=== PATIENT | female | born 1960 | race American Indian/Alaskan Native ===

== ENCOUNTER 2021-01-29 11:07 | Emergency (ER) | payer SELFPAY ==
[2021-01-29 11:58] LABS: Hematocrit 48.4 % (30.3-42.9); Hemoglobin 16.8 gm/dl (10.1-14.3); Mean Corpuscular HGB Conc 35 % (30-34); Mean Corpuscular Volume 92 fl (79-97); Platelet Count 300 K/mm3 (140-440); Red Blood Count 5.25 M/mm3 (3.65-5.03); Red Cell Distribution Width 14.5 % (13.2-15.2)
--- NOTE | 2021-01-29 12:16 | XRay Report ---
XR chest routine 2V INDICATION / CLINICAL INFORMATION: shortness of breath COMPARISON: None FINDINGS: SUPPORT DEVICES: None. HEART / MEDIASTINUM: No significant abnormality. LUNGS / PLEURA: Lungs are clear. Costophrenic sulci are sharp. No pneumothorax. ADDITIONAL FINDINGS: No significant additional findings. IMPRESSION: 1. No acute findings. Signer Name: Reinaldo Hope MD Signed: 01/29/2021 12:11 PM Workstation Name: [id number]
[2021-01-29 12:29] LABS: Alanine Aminotransferase 7 units/L (7-56); Albumin 3.7 g/dL (3.9-5); Blood Urea Nitrogen 9 mg/dL (7-17); Calcium 9.4 mg/dL (8.4-10.2); Hemolysis Index 9
[2021-01-29 12:33] LABS: BUN/Creatinine Ratio 13
[2021-01-29 12:45] LABS: Total Cells Counted 100
[2021-01-29 12:47] LABS: Platelet Estimate Consistent w Auto
[2021-01-29] MEDS ORDERED: ALBUTEROL 2.5 MG/3 ML NEBU IH ONE (12:54)
[2021-01-29] MEDS ORDERED: IPRATROPIUM 0.02% NEBU 2.5 ML IH ONE (12:54)
--- NOTE | 2021-01-29 13:00 | Emergency Department Report ---
HPI - HPI HPI: Room 44 The patient is a 60-year-old female present with chief complaint of shortness of breath. The patient states she has had dyspnea on exertion for approximately 1 year. Patient states over the past 2 weeks this is worsened. Patient admits to a cough productive of clear sputum. Patient denies history of fever or rhinorrhea. Patient denies shortness of breath at rest. Patient states she re ceived her second Covid vaccination last month. Patient admits to smoking cigarettes daily for approximately 20 years. Patient also admits to intermittent crack use <LOI MEJIA - Last Filed: 01/29/21 15:36> <RAYMUNDO WAHL - Last Filed: 01/29/21 17:02> - General Chief Complaint: Dyspnea/Respdistress Time Seen by Provider: 01/29/21 12:31 ED Past Medical Hx - Past Medical History Previous Medical History?: No - Surgical History Past Surgical History?: No - Family History Family history: no significant - Social History Smoking Status: Current Every Day Smoker (2 cigarettes daily) Substance Use Type: None (Occasional), Cocaine (Crack last used 2 days ago) <LOI MEJIA - Last Filed: 01/29/21 15:36> <RAYMUNDO WAHL - Last Filed: 01/29/21 17:02> - Medications Home Medications: Home Medications Medication Instructions Recorded Confirmed Last Taken Type Albuterol Mdi (or & Nicu Only) 2 puff IH QID PRN #8.5 gram 01/29/21 Unknown Rx [ProAir HFA Inhaler] Prednisone [predniSONE 10 mg 10 mg PO .TAPER #1 tab.ds.pk 01/29/21 Unknown Rx (6-Day Pack, 21 Tabs)] ED Review of Systems ROS: Stated complaint: HARD TIME BREATHING Other details as noted in HPI Constitutional: denies: fever Eyes: denies: eye pain ENT: denies: throat pain Respiratory: cough, SOB with exertion Cardiovascular: denies: chest pain Endocrine: no symptoms reported Gastrointestinal: denies: abdominal pain Genitourinary: denies: dysuria Musculoskeletal: denies: back pain Neurological: denies: headache <LOI MEJIA - Last Filed: 01/29/21 15:36> ROS: Stated complaint: HARD TIME BREATHING Other details as noted in HPI <RAYMUNDO WAHL - Last Filed: 01/29/21 17:02> Physical Exam - Physical Exam Vital Signs: Vital Signs 01/29/21 01/29/21 11:14 12:44 Temperature 98.9 F Pulse Rate 94 H 99 H Respiratory 24 18 Rate Blood Pressure 123/89 O2 Sat by Pulse 92 94 Oximetry Physical Exam: GENERAL: The patient is well-developed well-nourished female sitting in chair not appearing to be in acute distress. [] HEENT: Normocephalic. Atraumatic. Extraocular motions are intact. Patient has moist mucous membranes. NECK: Supple. Trachea midline CHEST/LUNGS: Clear to auscultation. There is no respiratory distress noted. HEART/CARDIOVASCULAR: Regular. There is no tachycardia. There is no gallop rub or murmur. ABDOMEN: Abdomen is soft, nontender. Patient has normal bowel sounds. There is no abdominal distention. SKIN: There is no rash. There is no edema. There is no diaphoresis. NEURO: The patient is awake, alert, and oriented. The patient is cooperative. The patient has no focal neurologic deficits. The patient has normal speech MUSCULOSKELETAL: There is no evidence of acute injury. <LOI MEJIA K - Last Filed: 01/29/21 15:36> - Physical Exam Vital Signs: Vital Signs 01/29/21 01/29/21 01/29/21 11:14 12:44 13:25 Temperature 98.9 F Pulse Rate 94 H 99 H Pulse Rate [ 85 Bilateral] Respiratory 24 18 Rate Respiratory 15 Rate [Bilateral ] Blood Pressure 123/89 O2 Sat by Pulse 92 94 Oximetry <RAYMUNDO WAHL - Last Filed: 01/29/21 17:02> ED Course Vital Signs 01/29/21 01/29/21 11:14 12:44 Temperature 98.9 F Pulse Rate 94 H 99 H Respiratory 24 18 Rate Blood Pressure 123/89 O2 Sat by Pulse 92 94 Oximetry <LOI MEJIA - Last Filed: 01/29/21 15:36> Vital Signs 01/29/21 01/29/21 01/29/21 11:14 12:44 13:25 Temperature 98.9 F Pulse Rate 94 H 99 H Pulse Rate [ 85 Bilateral] Respiratory 24 18 Rate Respiratory 15 Rate [Bilateral ] Blood Pressure 123/89 O2 Sat by Pulse 92 94 Oximetry - Reevaluation(s) Reevaluation #1: 01/29/21 16:57 On reevaluation at 4:55 PM, the patient is resting comfortably in the bed. She is in no acute distress. She reports that her symptoms are greatly improved. CTA of the chest shows no evidence of pulmonary embolism but there is an incidental finding of a right thyroid mass. The patient's vital signs are stable. Further work-up in the ER is not warranted at this time. I informed the patient of this incidental finding and the importance of follow-up with primary care doctor. The patient has been prescribed an albuterol inhaler and steroid course. The patient expressed understanding and agreement with the plan of care <RAYMUNDO WAHL - Last Filed: 01/29/21 17:02> ED Medical Decision Making - Lab Data Result diagrams: 01/29/21 11:34 01/29/21 11:34 Laboratory Tests 01/29/21 01/29/21 01/29/21 11:34 11:34 12:58 WBC 5.9 RBC 5.25 H Hgb 16.8 H Hct 48.4 H MCV 92 MCH 32 MCHC 35 H RDW 14.5 Plt Count 300 Add Manual Diff Complete Total Counted 100 Seg Neuts % (Manual) 58.0 Lymphocytes % (Manual) 35.0 Monocytes % (Manual) 1.0 Eosinophils % (Manual) 6.0 H Nucleated RBC % Not Reportable Seg Neutrophils # Man 3.4 Band Neutrophils # 0.0 Lymphocytes # (Manual) 2.1 Abs React Lymphs (Man) 0.0 Monocytes # (Manual) 0.1 Eosinophils # (Manual) 0.4 Basophils # (Manual) 0.0 Metamyelocytes # 0.0 Myelocytes # 0.0 Promyelocytes # 0.0 Blast Cells # 0.0 WBC Morphology Not Reportable Hypersegmented Neuts Not Reportable Hyposegmented Neuts Not Reportable Hypogranular Neuts Not Reportable Smudge Cells Not Reportable Toxic Granulation Not Reportable Toxic Vacuolation Not Reportable Dohle Bodies Not Reportable Pelger-Huet Anomaly Not Reportable Duncan Rods Not Reportable Platelet Estimate Consistent w auto Clumped Platelets Not Reportable Plt Clumps, EDTA Not Reportable Large Platelets Not Reportable Giant Platelets Not Reportable Platelet Satelliting Not Reportable Plt Morphology Comment Not Reportable RBC Morphology Not Reportable Dimorphic RBCs Not Reportable Polychromasia Not Reportable Hypochromasia Not Reportable Poikilocytosis Not Reportable Anisocytosis Not Reportable Microcytosis Not Reportable Macrocytosis Not Reportable Spherocytes Not Reportable Pappenheimer Bodies Not Reportable Sickle Cells Not Reportable Target Cells Not Reportable Tear Drop Cells Not Reportable Ovalocytes Not Reportable Helmet Cells Not Reportable [place] Bodies Not Reportable Warren Rings Not Reportable [place]alba Cells Not Reportable Bite Cells Not Reportable Crenated Cell Not Reportable Elliptocytes Not Reportable Acanthocytes (Spur) Not Reportable Rouleaux Not Reportable Hemoglobin C Crystals Not Reportable Schistocytes Not Reportable Malaria parasites Not Reportable Moi Bodies Not Reportable Hem Pathologist Commnt No D-Dimer 624.26 H Sodium 139 Potassium 3.4 L Chloride 101.4 Carbon Dioxide 25 Anion Gap 16 BUN 9 Creatinine 0.7 Estimated GFR > 60 BUN/Creatinine Ratio 13 Glucose 141 H Calcium 9.4 Total Bilirubin 1.00 AST 14 ALT 7 Alkaline Phosphatase 71 Troponin T < 0.010 NT-Pro-B Natriuret Pep 65.37 Total Protein 7.3 Albumin 3.7 L Albumin/Globulin Ratio 1.0 - EKG Data -: EKG Interpreted by Me EKG shows normal: sinus rhythm Rate: normal - EKG Data When compared to previous EKG there are: previous EKG unavailable Interpretation: other (PVCs) - Radiology Data Radiology results: report reviewed (Chest x-ray), image reviewed (Chest x-ray) interpreted by me: Chest x-ray-no focal infiltrates, no pneumothorax [facility] [address] [place] [address] XRay Report Signed Patient: JENNIFER BACK MR#: [id number] : 1960 Acct:[id number] Age/Sex: 60 / F ADM Date: 01/29/21 Loc: ED Attending Dr: Ordering Physician: JADON EVANS Date of Service: 01/29/21 Procedure(s): XR chest routine 2V Accession Number(s): [id number] cc: JADON EVANS Fluoro Time In Minutes: XR chest routine 2V INDICATION / CLINICAL INFORMATION: shortness of breath COMPARISON: None FINDINGS: SUPPORT DEVICES: None. HEART / MEDIASTINUM: No significant abnormality. LUNGS / PLEURA: Lungs are clear. Costophrenic sulci are sharp. No pneumothorax. ADDITIONAL FINDINGS: No significant additional findings. IMPRESSION: 1. No acute findings. Signer Name: Reinaldo Hope MD Signed: 01/29/2021 12:11 PM Workstation Name: [id number] Transcribed By: Dictated By: Reinaldo Hope MD Electronically Authenticated By: Reinaldo Hope MD Signed Date/Time: 01/29/211210 DD/ 10 TD/TT: Print Cancel - Differential Diagnosis COPD, PE, pneumonia, bronchitis, CHF <LOI MEJIA K - Last Filed: 01/29/21 15:36> - Lab Data Result diagrams: 01/29/21 11:34 01/29/21 11:34 - Radiology Data CTA CHEST WITH IV CONTRAST INDICATION: Shortness of breath CONTRAST: 100 cc 350 IV COMPARISON: Chest x-ray today Three-plane MIP reconstructions were produced. All CT scans at this location are performed using CT dose reduction for ALARA by means of automated exposure control. NOTE: Resolution is decreased and artifact is introduced by the patient's size. FINDINGS: Visualized portions of the upper abdomen show no significant abnormalities. No significant axillary or chest wall abnormalities are seen. The right lobe of the thyroid has an abnormal appearance with a heterogenous apparent mass measuring 2.5 cm with slight calcification seen. No mediastinal or hilar masses are noted. No pleural effusions are seen. No obvious endobronchial lesions are noted. No pneumothorax or pneumomediastinum are seen. Lung roberts are clear of infiltrates, nodules, or masses. Mild scarring/atelectasis is seen in the lingula. Aorta shows no aneurysmal dilatation or evidence of dissection. Only mild sclerotic changes are seen. Major visualized vessels show good filling. Acceptable opacification of the pulmonary arterial system was achieved. Though there is mild artifact due to the patient's size and mild motion, I do not see convincing evidence of pulmonary thromboembolism IMPRESSION: 1. No acute abnormalities are seen 2. Right thyroid mass. This is not a known abnormality, recommend clinical and sonographic follow-up. INCIDENTAL THYROID NODULE RECOMMENDATIONS Nonpalpable nodules detected on US or other anatomic imaging studies are termed incidentally discovered nodules or incidentalomas. Nonpalpable nodules have the same risk of malignancy as palpable nodules with the same size. Generally, only nodules >1 cm should be evaluated, since they have a greater potential to be clinically significant cancers. (RAJEEV, 2009). Follow up for incidental thyroid nodules <1 cm is not recommended. In patients <35 years with an incidental thyroid nodule detected on CT, MRI, or extrathyroidal ultrasound, dedicated thyroid ultrasound is recommended if the nodule is 1 cm, has no suspicious imaging features, and if the patient has normal life expectancy. In patients 35 years with an incidental thyroid nodule detected on CT, MRI, or extrathyroidal ultrasound, dedicated thyroid ultrasound is recommended if the nodule is 1.5 cm, has no suspicious imaging features, and if the patient has normal life expectancy. Signer Name: Gabo Preciado MD Signed: 01/29/2021 3:38 PM Workstation Name: [id number] <RAYMUNDO WAHL - Last Filed: 01/29/21 17:02> Critical care attestation.: If time is entered above; I have spent that time in minutes in the direct care of this critically ill patient, excluding procedure time. <LOI MEJIA - Last Filed: 01/29/21 15:36> Critical care attestation.: If time is entered above; I have spent that time in minutes in the direct care of this critically ill patient, excluding procedure time. <RAYMUNDO WAHL - Filed: 01/29/21 17:02> ED Disposition Is pt being admited?: No Does the pt Need Aspirin: No <LOI MEJIA - Last Filed: 01/29/21 15:36> <RAYMUNDO WAHL Filed: 01/29/21 17:02> Clinical Impression: Shortness of breath, Reactive airway disease, Thyroid mass of unclear etiology Disposition: DC-01 TO HOME OR SELFCARE Condition: Stable Instructions: Shortness of Breath, Adult, Yjdm-ic-Hnxr, Chronic Obstructive Pul monary Disease Additional Instructions: The Cat scan of your chest revealed an incidental finding of a mass in the right side of your thyroid gland. This needs to be followed up by primary care doctor. Please return to the emergency department should you develop worsening symptoms, inability to tolerate food or liquids, high fever or any other concerns Prescriptions: Prednisone [predniSONE 10 mg (6-Day Pack, 21 Tabs)] 10 mg PO .TAPER #1 tab.ds.pk Albuterol Mdi (or & Nicu Only) [ProAir HFA Inhaler] 2 puff IH QID PRN #8.5 gram PRN Reason: Shortness Of Breath Referrals: [facility] [Provider Group] - 3-5 Days
--- NOTE | 2021-01-29 16:43 | Cat Scan Report ---
CTA CHEST WITH IV CONTRAST INDICATION: Shortness of breath CONTRAST: 100 cc 350 IV COMPARISON: Chest x-ray today Three-plane MIP reconstructions were produced. All CT scans at this location are performed using CT d ose reduction for ALARA by means of automated exposure control. NOTE: Resolution is decreased and artifact is introduced by the patient's size. FINDINGS: Visualized portions of the upper abdomen show no significant abnormalities. No significant axillary or chest wall abnormalities are seen. The right lobe of the thyroid has an abnormal appearan ce with a heterogenous apparent mass measuring 2.5 cm with slight calcification seen. No mediastinal or hilar masses are noted. No pleural effusions are seen. No obvious endobronchial lesions are noted. No pneumothorax or pneumomediastinum are seen. Lung roberts are clear of infiltrates, nodules, or mas ses. Mild scarring/atelectasis is seen in the lingula. Aorta shows no aneurysmal dilatation or evidence of dissection. Only mild sclerotic changes are seen. Major visualized vessels show good filling. Acceptable opacification of the pulmonary arterial system was achieved. Though there is mild artifact due to the patient's size and mild motion, I do not see convincing evidence of pulmonary thromboembo lism IMPRESSION: 1. No acute abnormalities are seen 2. Right thyroid mass. This is not a known abnormality, recommend clinical and sonographic follow-up. INCIDENTAL THYROID NODULE RECOMMENDATIONS Nonpalpable nodules detected on US or other anatomic imaging studies are termed incidentally discover ed nodules or incidentalomas. Nonpalpable nodules have the same risk of malignancy as palpable nodule s with the same size. Generally, only nodules >1 cm should be evaluated, since they have a greater po tential to be clinically significant cancers. (RAJEEV, 2009). Follow up for incidental thyroid nodules <1 cm is not recommended. In patients <35 years with an incidental thyroid nodule detected on CT, MRI, or extrathyroidal ultras ound, dedicated thyroid ultrasound is recommended if the nodule is 1 cm, has no suspicious imaging fe atures, and if the patient has normal life expectancy. In patients 35 years with an incidental thyroid nodule detected on CT, MRI, or extrathyroidal ultraso und, dedicated thyroid ultrasound is recommended if the nodule is 1.5 cm, has no suspicious imaging f eatures, and if the patient has normal life expectancy. Signer Name: Gabo Preciado MD Signed: 01/29/2021 4:38 PM Workstation Name: [id number]
[2021-01-29 18:11] VITALS: BP 151/73
--- NOTE | 2021-01-30 09:55 | Electrocardiograph Report ---
[facility] Test Date: 2021-01-29 Test Time: 11:18:21 Pat Name: JENNIFER BACK Department: Room: Gender: F Development Mgr: STEWART : 1960 Requested By: ED DOC Order Number: [id number] Reading MD: Jaskaran Brar Measurements Intervals [place] Rate: 95 P: 83 ME: 136 QRS: 7 QRSD: 74 T: 73 QT: 358 QTc: 452 Interpretive Statements Sinus rhythm Multiple ventricular premature complexes Biatrial enlargement non specific st-t No previous ECG available for comparison Electronically Signed On 01-30-2021 9:55:14 EDT by Jaskaran Brar
== END 2021-01-29 18:11 | disposition home or self-care (01) ==
LOC: ED 11:07
DX: J45.909 Unspecified asthma, uncomplicated (principal); E07.9 Disorder of thyroid, unspecified; R06.02 Shortness of breath; F17.200 Nicotine dependence, unspecified, uncomplicated; Z79.899 Other long term (current) drug therapy
CPT/HCPCS: 36415; 71046; 71275; 80053; 83880; 84484; 85007; 85025; 85379; 93005; 94640; 99284; Q9967; 94644

== ENCOUNTER 2021-06-20 13:08 | Inpatient (IN) | payer SELFPAY ==
[2021-06-20] MEDS ORDERED: IPRATROPIUM 0.02% NEBU 2.5 ML IH ONE ×2 (13:15→13:26)
[2021-06-20] MEDS ORDERED: ALBUTEROL 2.5 MG/3 ML NEBU IH ONE ×2 (13:15→13:26)
[2021-06-20] MEDS ORDERED: MAGNESIUM SULFATE 2 GM/50 ML BAG IV ONE (13:26)
[2021-06-20] MEDS ORDERED: SODIUM CHLORIDE 0.9% 500 ML 500 ML IV ONE (13:26)
[2021-06-20] MEDS ORDERED: methylPREDNISolone Sod Succinate 125 MG/2 ML INJ IV ONE (13:26)
[2021-06-20] MEDS ORDERED: ACETAMINOPHEN 325 MG TAB PO ONE (13:27)
[2021-06-20] MEDS ORDERED: PANTOPRAZOLE 40 MG INJ IV ONE (13:27)
--- NOTE | 2021-06-20 13:28 | Emergency Department Report ---
ED General Adult HPI - General Chief complaint: Dyspnea/Respdistress Stated complaint: SOB PUI?: No Time Seen by Provider: 06/20/21 13:14 Source: patient, RN notes reviewed, old records reviewed Mode of arrival: Ambulatory Limitations: Physical Limitation - History of Present Illness Initial comments: The patient is a 61-year-old female. She is not known to myself previously. Patient has a history of tobacco use, crack abuse, and marijuana abuse. The patient was seen in this hospital in January 2021, of this year, and had a work-up for new onset reactive airways disease. She had laboratory studies, x-ray of the chest, and CT scan of the chest as well as EKG. Laboratory studies were essentially unremarkable, and CT scan of the chest showed no acute pulmonary findings. Patient states she was prescribed some inhalers, some of which she has taken, but subsequently ran out of, and also reports difficulty affording pres criptions. Patient presents to the ER today with complaint of chest tightness, cough, wheezing, clear mucus production and shortness of breath. She is COVID-19 vaccinated. She denies fever, loss of taste and smell, abdominal pain, vomiting, diaphoresis, leg pain, leg swelling, travel, surgery, immobilization, DVT and PE risk factors. She is feeling improved on a nonrebreather with albuterol and Atrovent as well as supplemental oxygen. -: Gradual, days(s) Location: chest Radiation: non-radiation Consistency: constant Improves with: rest Worsens with: movement (Movement and cough) - Related Data Previous Rx's Medication Instructions Recorded Last Taken Type Albuterol Mdi (or & Nicu Only) 2 puff IH QID PRN #8.5 gram 01/29/21 Unknown Rx [ProAir HFA Inhaler] Prednisone [predniSONE 10 mg 10 mg PO .TAPER #1 tab.ds.pk 01/29/21 Unknown Rx (6-Day Pack, 21 Tabs)] Albuterol Sulfate [Albuterol 0.63% 0.63 mg IH Q4HR PRN #2 ml 06/20/21 Unknown Rx NEBS] Albuterol Sulfate [Proair 90 mcg IH Q4HR PRN #2 aer.pow.ba 06/20/21 Unknown Rx Respiclick] DOXYCYCLINE Hyclate [Vibramycin] 100 mg PO Q12HR #10 capsule 06/20/21 Unknown Rx Ipratropium (Nf) [Atrovent] 2 puff IH Q6HR PRN #1 inha 06/20/21 Unknown Rx Ipratropium [Atrovent NEB] 0.5 mg IH Q4HR #2 ml 06/20/21 Unknown Rx predniSONE [Deltasone] 40 mg PO QDAY #8 tab 06/20/21 Unknown Rx Allergies Allergy/AdvReac Type Severity Reaction Status Date / Time No Known Allergies Allergy Verified 06/20/21 13:11 ED Review of Systems ROS: Stated complaint: SOB Other details as noted in HPI Constitutional: malaise. denies: fever Eyes: denies: eye discharge ENT: congestion Respiratory: cough, shortness of breath, SOB with exertion, SOB at rest, wheezing Cardiovascular: chest pain Gastrointestinal: denies: abdominal pain, nausea, vomiting Musculoskeletal: myalgia Neurological: weakness Psychiatric: anxiety Hematological/Lymphatic: denies: easy bleeding ED Past Medical Hx - Social History Smoking Status: Current Every Day Smoker Substance Use Type: Cocaine, Marijuana - Medications Home Medications: Home Medications Medication Instructions Recorded Confirmed Last Taken Type Albuterol Mdi (or & Nicu Only) 2 puff IH QID PRN #8.5 gram 01/29/21 Unknown Rx [ProAir HFA Inhaler] Prednisone [predniSONE 10 mg 10 mg PO .TAPER #1 tab.ds.pk 01/29/21 Unknown Rx (6-Day Pack, 21 Tabs)] Albuterol Sulfate [Albuterol 0.63% 0.63 mg IH Q4HR PRN #2 ml 06/20/21 Unknown Rx NEBS] Albuterol Sulfate [Proair 90 mcg IH Q4HR PRN #2 aer.pow.ba 06/20/21 Unknown Rx Respiclick] DOXYCYCLINE Hyclate [Vibramycin] 100 mg PO Q12HR #10 capsule 06/20/21 Unknown Rx Ipratropium (Nf) [Atrovent] 2 puff IH Q6HR PRN #1 inha 06/20/21 Unknown Rx Ipratropium [Atrovent NEB] 0.5 mg IH Q4HR #2 ml 06/20/21 Unknown Rx predniSONE [Deltasone] 40 mg PO QDAY #8 tab 06/20/21 Unknown Rx ED Physical Exam - General Limitations: Physical Limitation General appearance: alert, anxious, in distress - Head Head exam: Present: atraumatic, normocephalic - Eye Eye exam: Present: normal appearance, EOMI. Absent: nystagmus - ENT ENT exam: Present: normal exam, normal orophraynx, mucous membranes moist, normal external ear exam - Neck Neck exam: Present: normal inspection, full ROM. Absent: tenderness, meningismus - Respiratory Respiratory exam: Present: respiratory distress, wheezes, rhonchi, accessory muscle use - Cardiovascular Cardiovascular Exam: Present: normal rhythm, tachycardia, normal heart sounds. Absent: bradycardia, irregular rhythm, systolic murmur, diastolic murmur, rubs, gallop - GI/Abdominal GI/Abdominal exam: Present: soft. Absent: distended, tenderness, guarding, rebound, rigid, pulsatile mass - Extremities Exam Extremities exam: Present: normal inspection, full ROM, other (2+ pulses noted in the bilateral upper and lower extremities. There is no palpable cord. negative Homans sign. Muscular compartments are soft. The pelvis is stable.). Absent: pedal edema, calf tenderness - Back Exam Back exam: Present: normal inspection, full ROM. Absent: tenderness, CVA t enderness (R), CVA tenderness (L), paraspinal tenderness, vertebral tenderness - Neurological Exam Neurological exam: Present: alert, oriented X3, other (No facial droop. Tongue midline. Extraocular movements intact bilaterally. Facial sensation intact to light touch in V1, V2, V3 distribution bilaterally. 5 and a 5 strength in 4 extremities. Sensation intact to light touch in 4 extremities.). Absent: motor sensory deficit - Psychiatric Psychiatric exam: Present: anxious - Skin Skin exam: Present: warm, dry, intact, normal color. Absent: rash ED Course Vital Signs 06/20/21 06/20/21 06/20/21 13:25 13:33 13:41 Temperature 98.1 F Pulse Rate 107 H Pulse Rate [ 100 H Bilateral] Respiratory 32 H Rate Respiratory 16 Rate [Bilateral ] Blood Pressure 157/94 Blood Pressure [Left] O2 Sat by Pulse 94 Oximetry 06/20/21 06/20/21 13:44 15:30 Temperature Pulse Rate 99 H Pulse Rate [ Bilateral] Respiratory 24 22 Rate Respiratory Rate [Bilateral ] Blood Pressure Blood Pressure 126/74 [Left] O2 Sat by Pulse 97 90 Oximetry - Reevaluation(s) Reevaluation #1: 06/20/21 13:45 Differential diagnosis, including but not limited to: Bronchitis, pneumonia, pneumonitis, costochondritis, emphysema, COPD Assessment and plan: 61-year-old female with recurrent episode of reactive airwa ys disease, likely bronchitis versus emphysema versus COPD. Patient counseled to discontinue tobacco, marijuana, and crack consumption. She presents as awake, alert, oriented, sober and of sound mind at this time. Denies travel, surgery, immobilization, DVT/PE risk factors. Tachycardia and tachypnea likely secondary to physiologic compensation for underlying reactive airways disease. Her EKG is unchanged from prior. She had a CT scan of the chest for similar symptoms January of this year. We will treat her with albuterol, Atrovent, steroids, magnesium, pain control, we will obtain laboratory studies and x-ray the chest. Reassess after initial data points. 06/20/21 15:10 Polycythemia reviewed and appreciated. Still wheezing. Has not completed albuterol Atrovent therapy. Care will be transferred to the oncoming ER physician, to follow-up on repeat physical evaluation after completion of nebulizer therapy. If vital signs and exam normalized, would consider it reasonable to discharge this patient with outpatient follow-up, and tobacco cessation instructions. 06/20/21 15:36 Patient saturating 87% on room air. Arterial blood gas ordered. Still wheezing and symptomatic. IV antibiotics ordered. Supplemental oxygen ordered. Patient will require admission and hospitalization for hypoxic respiratory failure, likely secondary to emphysema/bronchitis. I discussed this with the patient. She is agreeable to this plan of care. 06/20/21 15:57 Dr Flo Christie to admit to [facility] ED Medical Decision Making - Lab Data Result diagrams: 06/20/21 13:40 06/20/21 13:39 Vital Signs 06/20/21 06/20/21 13:25 13:33 Pulse Rate 107 H Pulse Rate [ 100 H Bilateral] Respiratory 32 H Rate Respiratory 16 Rate [Bilateral ] Blood Pressure 157/94 O2 Sat by Pulse 94 Oximetry Lab Results 06/20/21 06/20/21 06/20/21 Range/Units 13:39 13:39 13:40 WBC 6.8 (4.5-11.0) K/mm3 RBC 6.09 H (3.65-5.03) M/mm3 Hgb 18.0 H (10.1-14.3) gm/dl Hct 55.7 H* (30.3-42.9) % MCV 91 (79-97) fl MCH 30 (28-32) pg MCHC 32 (30-34) % RDW 14.4 (13.2-15.2) % Plt Count 325 (140-440) K/mm3 Lymph % (Auto) 32.9 (13.4-35.0) % [place] % (Auto) 7.4 H (0.0-7.3) % Eos % (Auto) 2.6 (0.0-4.3) % Baso % (Auto) 1.1 (0.0-1.8) % Lymph # (Auto) 2.2 (1.2-5.4) K/mm3 [place] # (Auto) 0.5 (0.0-0.8) K/mm3 Eos # (Auto) 0.2 (0.0-0.4) K/mm3 Baso # (Auto) 0.1 (0.0-0.1) K/mm3 Seg Neutrophils % 56.0 (40.0-70.0) % Seg Neutrophils # 3.8 (1.8-7.7) K/mm3 PT 13.2 (12.2-14.9) Sec. INR 0.90 (0.87-1.13) Sodium 139 (137-145) mmol/L Potassium 4.1 (3.6-5.0) mmol/L Chloride 98.1 (98-107) mmol/L Carbon Dioxide 25 (22-30) mmol/L Anion Gap 20 mmol/L BUN 7 (7-17) mg/dL Creatinine 0.5 L (0.6-1.2) mg/dL Estimated GFR > 60 ml/min BUN/Creatinine Ratio 14 % Glucose 86 (65-100) mg/dL Calcium 9.4 (8.4-10.2) mg/dL Magnesium 2.10 (1.7-2.3) mg/dL Total Bilirubin 1.10 (0.1-1.2) mg/dL AST 13 (5-40) units/L ALT 9 (7-56) units/L Alkaline Phosphatase 85 (35-129) units/L Troponin T < 0.010 (0.00-0.029) ng/mL Total Protein 8.2 (6.3-8.2) g/dL Albumin 4.3 (3.9-5) g/dL Albumin/Globulin Ratio 1.1 % - EKG Data -: EKG Interpreted by Me EKG shows normal: sinus rhythm Rate: normal - EKG Data When compared to previous EKG there are: no significant change 06/20/21 13:41 EKG today is interpreted at 13: 36 It is compared to prior EKG from 01/29/2021 Sinus rhythm, rate 97 bpm. Left axis deviation. Borderline left anterior fascicular block. QTC 479 ms. PVC. Minimal motion artifact. Abnormal EKG. Not a STEMI. Unchanged from prior. - Radiology Data Radiology results: report reviewed, image reviewed CTA CHEST WITH IV CONTRAST INDICATION: Shortness of breath CONTRAST: 100 cc 350 IV COMPARISON: Chest x-ray today Three-plane MIP reconstructions were produced. All CT scans at this location are performed using CT dose reduction for ALARA by means of automated exposure control. NOTE: Resolution is decreased and artifact is introduced by the patient's size. FINDINGS: Visualized portions of the upper abdomen show no significant abnormalities. No significant axillary or chest wall abnormalities are seen. The right lobe of the thyroid has an abnormal appearance with a heterogenous apparent mass measuring 2.5 cm with slight calcification seen. No mediastinal or hilar masses are noted. No pleural effusions are seen. No obvious endobronchial lesions are noted. No pneumothorax or pneumomediastinum are seen. Lung roberts are clear of infiltrates, nodules, or masses. Mild scarring/atelectasis is seen in the lingula. Aorta shows no ane urysmal dilatation or evidence of dissection. Only mild sclerotic changes are seen. Major visualized vessels show good filling. Acceptable opacification of the pulmonary arterial system was achieved. Though there is mild artifact due to the patient's size and mild motion, I do not see convincing evidence of pulmonary thromboembolism IMPRESSION: 1. No acute abnormalities are seen 2. Right thyroid mass. This is not a known abnormality, recommend clinical and sonographic follow-up. INCIDENTAL THYROID NODULE RECOMMENDATIONS Nonpalpable nodules detected on US or other anatomic imaging studies are termed incidentally discovered nodules or incidentalomas. Nonpalpable nodules have the same risk of malignancy as palpable nodules with the same size. Generally, only nodules >1 cm should be evaluated, since they have a greater potential to be clinically significant cancers. (RAJEEV, 2009). Follow up for incidental thyroid nodules <1 cm is not recommended. In patients <35 years with an incidental thyroid nodule detected on CT, MRI, or extrathyroidal ultrasound, dedicated thyroid ultrasound is recommended if the nodule is 1 cm, has no suspicious imaging features, and if the patient has normal life expectancy. In patients 35 years with an incidental thyroid nodule detected on CT, MRI, or extrathyroidal ultrasound, dedicated thyroid ultrasound is recommended if the nodule is 1.5 cm, has no suspicious imaging features, and if the patient has normal life expectancy. Signer Name: Gabo Preciado MD Signed: 01/29/2021 3:38 PM Workstation Name: [id number] XR chest routine 2V INDICATION / CLINICAL INFORMATION: shortness of breath COMPARISON: None FINDINGS: SUPPORT DEVICES: None. HEART / MEDIASTINUM: No significant abnormality. LUNGS / PLEURA: Lungs are clear. Costophrenic sulci are sharp. No pneumothorax. ADDITIONAL FINDINGS: No significant additional findings. IMPRESSION: 1. No acute findings. Signer Name: Reinaldo Hope MD Signed: 01/29/2021 11:11 AM Workstation Name: [id number] XR chest 1V ap INDICATION / CLINICAL INFORMATION: Dyspnea. COMPARISON: CT and radiograph from 01/29/2021. FINDINGS: SUPPORT DEVICES: None. HEART /PULMONARY VASCULATURE: Cardiac silhouette is enlarged without significant pulmonary vasculature congestion. LUNGS / PLEURA: No significant pulmonary or pleural abnormality. No pneumothorax. ADDITIONAL FINDINGS: No significant additional findings. IMPRESSION: 1. No acute findings. Signer Name: Francisco Aldrich MD Signed: 06/20/2021 1:06 PM Workstation Name: [id number] Critical Care Time: Yes Critical care time in (mins) excluding proc time.: 35 Critical care attestation.: If time is entered above; I have spent that time in minutes in the direct care of this critically ill patient, excluding procedure time. ED Disposition Clinical Impression: Reactive airway disease, Tobacco use, Marijuana use, Crack cocaine use, Polycythemia, Acute respiratory failure Disposition: 09 ADMITTED INPATIENT Is pt being admited?: Yes Does the pt Need Aspirin: No Condition: Good Instructions: Chronic Obstructive Pulmonary Disease Additional Instructions: Recommend that patient discontinue consumption of cocaine, crack, marijuana and tobacco products. Patient may take [id number] Tylenol and ibuprofen as needed for physical pain. Please take the albuterol Atrovent medications as directed, and steroids as directed. Please follow-up with an outpatient primary care doctor or criminal justice social worker within the next 5 to 7 days for repeat checkup and evaluation. Patient most likely has emphysema and/or bronchitis and/or COPD. This is likely coming from tobacco consumption. Please return to the emergency room right away with new pain, worsened pain, migration of pain, projectile vomiting, change in mental status, confusion, inability tolerate liquid feeds, new, worsened or different symptoms not present on the initial emergency room evaluation Please have your primary care doctor or criminal justice social worker contact the medical records department to obtain copies of laboratory studies and imaging studies, to follow-up on nonemergent incidental abnormal findings. Prescriptions: Albuterol Sulfate [Albuterol 0.63% NEBS] 0.63 mg IH Q4HR PRN #2 ml PRN Reason: Wheezing Ipratropium (Nf) [Atrovent] 2 puff IH Q6HR PRN #1 inha PRN Reason: Wheezing Ipratropium [Atrovent NEB] 0.5 mg IH Q4HR #2 ml predniSONE [Deltasone] 40 mg PO QDAY #8 tab Albuterol Sulfate [Proair Respiclick] 90 mcg IH Q4HR PRN #2 aer.pow.ba PRN Reason: Wheezing DOXYCYCLINE Hyclate [Vibramycin] 100 mg PO Q12HR #10 capsule Referrals: ALICE HULL MD [Staff Physician] - 3-5 Days TOM CHAVEZ MD [Staff Physician] - 3-5 Days
--- NOTE | 2021-06-20 14:10 | XRay Report ---
XR chest 1V ap INDICATION / CLINICAL INFORMATION: Dyspnea. COMPARISON: CT and radiograph from 01/29/2021. FINDINGS: SUPPORT DEVICES: None. HEART /PULMONARY VASCULATURE: Cardiac silhouette is enlarged without significant pulmonary vasculatur e congestion. LUNGS / PLEURA: No significant pulmonary or pleural abnormality. No pneumothorax. ADDITIONAL FINDINGS: No significant additional findings. IMPRESSION: 1. No acute findings. Signer Name: Francisco Aldrich MD Signed: 06/20/2021 2:06 PM Workstation Name: [id number]
[2021-06-20 14:17] LABS: Basophils # (Auto) 0.1 K/mm3 (0.0-0.1); Basophils % (Auto) 1.1 % (0.0-1.8); Eosinophils # (Auto) 0.2 K/mm3 (0.0-0.4); Eosinophils % (Auto) 2.6 % (0.0-4.3); Lymphocytes # (Auto) 2.2 K/mm3 (1.2-5.4); Lymphocytes % (Auto) 32.9 % (13.4-35.0); Mean Corpuscular HGB Conc 32 % (30-34); Mean Corpuscular Volume 91 fl (79-97); Monocytes # (Auto) 0.5 K/mm3 (0.0-0.8); Monocytes % (Auto) 7.4 % (0.0-7.3); Platelet Count 325 K/mm3 (140-440); Red Blood Count 6.09 M/mm3 (3.65-5.03); Red Cell Distribution Width 14.4 % (13.2-15.2)
[2021-06-20 14:34] LABS: Alanine Aminotransferase 9 units/L (7-56); Albumin 4.3 g/dL (3.9-5); BUN/Creatinine Ratio 14; Blood Urea Nitrogen 7 mg/dL (7-17); Calcium 9.4 mg/dL (8.4-10.2); Hemolysis Index 13
[2021-06-20 14:41] LABS: INR 0.9 (0.87-1.13)
[2021-06-20 14:45] LABS: Hematocrit 55.7 % (30.3-42.9)
[2021-06-20] MEDS ORDERED: FAMOTIDINE 20 MG/2 ML INJ IV ONE (15:12)
[2021-06-20] MEDS ORDERED: diphenhydrAMINE 50 MG/ML VIAL IV ONE (15:12)
[2021-06-20] MEDS ORDERED: AZITHROMYCIN/NS 500 MG/250 ML 500 MG/250 ML BAG IV ONE (15:36)
[2021-06-20] MEDS ORDERED: cefTRIAXone/NS 1 GM/50 ML 1 GM/50 ML BAG IV ONE (15:36)
[2021-06-20 16:06] LABS: ABG Base Excess -2.2 mmol/L (-2.0-3.0); ABG PCO2 36.6 mm Hg; ABG PH 7.398 pH Units (7.350-7.450); ABG PO2 57.9 mm Hg (80.0-90.0)
[2021-06-20 16:21] LABS: ABG Methemoglobin 0.5 % (0.0-1.5); ABG Oxygen Saturation 92.6 % (95.0-99.0)
[2021-06-20] MEDS ORDERED: SODIUM CHLORIDE 0.9% 1000 ML 1,000 ML IV SCH (20:45)
[2021-06-20] MEDS ORDERED: ONDANSETRON 4 MG/2 ML INJ IV PRN (20:45)
[2021-06-20] MEDS ORDERED: ACETAMINOPHEN 325 MG TAB PO PRN (20:45)
[2021-06-20] MEDS ORDERED: METOCLOPRAMIDE 10 MG/2 ML INJ IV PRN (20:47)
[2021-06-20] MEDS ORDERED: HYDROmorphone 1 MG/1 ML INJ IV PRN (20:47)
[2021-06-20] MEDS ORDERED: IPRATROPIUM/ALBUTEROL SULFATE 3 ML AMPUL.NEB IH PRN (20:48)
--- NOTE | 2021-06-20 20:50 | History and Physical Report ---
History of Present Illness Date of examination: 06/20/21 Date of admission: 06/20/21 15:58 Chief complaint: Increasing shortness of breath for 2 days History of present illness: 61-year-old female with history of COPD, nicotine dependence, cocaine use and marijuana use comes in for increasing shortness of breath. Cough productive of mucoid sputum. Previous admission was reviewed which was consistent with COPD exacerbation. No fever or chills. Patient is vaccinated. Complains of chest tightness wheezing and mucus production. No loss of taste or smell. Patient was hypoxic in the emergency room. In the high 80s. - Past medical history COPD - Past surgical history --none -Family history --Htn - Social History --Smoking Status: Current Every Day Smoker --Substance Use Type: Cocaine, Marijuana - Medications Home Medications: Home Medications Medication Instructions Recorded Confirmed Last Taken Type Albuterol Mdi (or & Nicu Only) 2 puff IH QID PRN #8.5 gram 01/29/21 Unknown Rx [ProAir HFA Inhaler] Prednisone [predniSONE 10 mg 10 mg PO .TAPER #1 tab.ds.pk 01/29/21 Unknown Rx (6-Day Pack, 21 Tabs)] Albuterol Sulfate [Albuterol 0.63% 0.63 mg IH Q4HR PRN #2 ml 06/20/21 Unknown Rx NEBS] Albuterol Sulfate [Proair 90 mcg IH Q4HR PRN #2 aer.pow.ba 06/20/21 Unknown Rx Respiclick] DOXYCYCLINE Hyclate [Vibramycin] 100 mg PO Q12HR #10 capsule 06/20/21 Unknown Rx Ipratropium (Nf) [Atrovent] 2 puff IH Q6HR PRN #1 inha 06/20/21 Unknown Rx Ipratropium [Atrovent NEB] 0.5 mg IH Q4HR #2 ml 06/20/21 Unknown Rx predniSONE [Deltasone] 40 mg PO QDAY #8 tab 06/20/21 Unknown Rx Review of Systems ROS: Stated complaint: SOB Other details as noted in HPI Constitutional: malaise. denies: fever Eyes: denies: eye discharge ENT: congestion Respiratory: cough, shortness of breath, SOB with exertion, SOB at rest, wheezing Cardiovascular: chest pain Gastrointestinal: denies: abdominal pain, nausea, vomiting Musculoskeletal: myalgia Neurological: weakness Psychiatric: anxiety Hematological/Lymphatic: denies: easy bleeding Medications and Allergies Allergies Allergy/AdvReac Type Severity Reaction Status Date / Time codeine Allergy Anaphylaxis Verified 06/21/21 01:55 Home Medications Medication Instructions Recorded Confirmed Last Taken Type Albuterol Mdi (or & Nicu Only) 2 puff IH QID PRN #8.5 gram 01/29/21 Unknown Rx [ProAir HFA Inhaler] Prednisone [predniSONE 10 mg 10 mg PO .TAPER #1 tab.ds.pk 01/29/21 06/21/21 01/14/21 09:00 Rx (6-Day Pack, 21 Tabs)] Albuterol Sulfate [Albuterol 0.63% 0.63 mg IH Q4HR PRN #2 ml 06/20/21 Unknown Rx NEBS] Albuterol Sulfate [Proair 90 mcg IH Q4HR PRN #2 aer.pow.ba 06/20/21 Unknown Rx Respiclick] DOXYCYCLINE Hyclate [Vibramycin] 100 mg PO Q12HR #10 capsule 06/20/21 Unknown Rx Ipratropium (Nf) [Atrovent] 2 puff IH Q6HR PRN #1 inha 06/20/21 Unknown Rx Ipratropium [Atrovent NEB] 0.5 mg IH Q4HR #2 ml 06/20/21 Unknown Rx predniSONE [Deltasone] 40 mg PO QDAY #8 tab 06/20/21 Unknown Rx Exam - Constitutional Vitals: Temp Pulse Resp BP Pulse Ox 98.7 F 87 25 H 113/71 98 06/20/21 19:21 06/20/21 19:21 06/20/21 19:21 06/20/21 19:21 06/20/21 19:21 General appearance: Present: no acute distress, well-nourished - EENT Eyes: Present: PERRL ENT: hearing intact, clear oral mucosa - Neck Neck: Present: supple, normal ROM - Respiratory Respiratory effort: normal Respiratory: bilateral: CTA, rhonchi, wheezing - Cardiovascular Heart rate: 76 Rhythm: regular Heart Sounds: Present: S1 & S2. Absent: rub, click - Extremities Extremities: pulses symmetrical, No edema Peripheral Pulses: within normal limits - Abdominal General gastrointestinal: Present: soft, non-tender, non-distended, normal bowel sounds Female genitourinary: Present: normal - Integumentary Integumentary: Present: clear, warm, dry - Musculoskeletal Musculoskeletal: gait normal, strength equal bilaterally - Psychiatric Psychiatric: appropriate mood/affect, intact judgment & insight - Neurologic Neurologic: CNII-XII intact, moves all extremities - Allied Health Allied health notes reviewed: nursing, case management HEART Score - HEART Score Troponin: Troponin T < 0.010 ng/mL (0.00-0.029) 06/20/21 13:39 Results - Labs CBC & Chem 7: 06/20/21 13:40 06/20/21 13:39 Labs: Laboratory Last Values WBC 6.8 K/mm3 (4.5-11.0) 06/20/21 13:40 RBC 6.09 M/mm3 (3.65-5.03) H 06/20/21 13:40 Hgb 18.0 gm/dl (10.1-14.3) H 06/20/21 13:40 Hct 55.7 % (30.3-42.9) H* 06/20/21 13:40 MCV 91 fl (79-97) 06/20/21 13:40 MCH 30 pg (28-32) 06/20/21 13:40 MCHC 32 % (30-34) 06/20/21 13:40 RDW 14.4 % (13.2-15.2) 06/20/21 13:40 Plt Count 325 K/mm3 (140-440) 06/20/21 13:40 Lymph % (Auto) 32.9 % (13.4-35.0) 06/20/21 13:40 [place] % (Auto) 7.4 % (0.0-7.3) H 06/20/21 13:40 Eos % (Auto) 2.6 % (0.0-4.3) 06/20/21 13:40 Baso % (Auto) 1.1 % (0.0-1.8) 06/20/21 13:40 Lymph # (Auto) 2.2 K/mm3 (1.2-5.4) 06/20/21 13:40 [place] # (Auto) 0.5 K/mm3 (0.0-0.8) 06/20/21 13:40 Eos # (Auto) 0.2 K/mm3 (0.0-0.4) 06/20/21 13:40 Baso # (Auto) 0.1 K/mm3 (0.0-0.1) 06/20/21 13:40 Seg Neutrophils % 56.0 % (40.0-70.0) 06/20/21 13:40 Seg Neutrophils # 3.8 K/mm3 (1.8-7.7) 06/20/21 13:40 PT 13.2 Sec. (12.2-14.9) 06/20/21 13:39 INR 0.90 (0.87-1.13) 06/20/21 13:39 ABG pH 7.398 pH Units (7.350-7.450) 06/20/21 16:00 ABG pCO2 36.6 mm Hg 06/20/21 16:00 ABG pO2 57.9 mm Hg (80.0-90.0) L 06/20/21 16:00 ABG HCO3 22.0 mmol/L (20.0-26.0) 06/20/21 16:00 ABG O2 Saturation 92.6 % (95.0-99.0) L 06/20/21 16:00 ABG O2 Content 18.8 (0.0-44) 06/20/21 16:00 ABG Base Excess -2.2 mmol/L (-2.0-3.0) L 06/20/21 16:00 ABG Hemoglobin 18.0 gm/dl (12.0-16.0) H 06/20/21 16:00 ABG Carboxyhemoglobin 8.5 % (0.0-5.0) H 06/20/21 16:00 ABG Methemoglobin 0.5 % (0.0-1.5) 06/20/21 16:00 Oxyhemoglobin 84.3 % (95.0-99.0) L 06/20/21 16:00 FiO2 21 % 06/20/21 16:00 Sodium 139 mmol/L (137-145) 06/20/21 13:39 Potassium 4.1 mmol/L (3.6-5.0) 06/20/21 13:39 Chloride 98.1 mmol/L (98-107) 06/20/21 13:39 Carbon Dioxide 25 mmol/L (22-30) 06/20/21 13:39 Anion Gap 20 mmol/L 06/20/21 13:39 BUN 7 mg/dL (7-17) 06/20/21 13:39 Creatinine 0.5 mg/dL (0.6-1.2) L 06/20/21 13:39 Estimated GFR > 60 ml/min 06/20/21 13:39 BUN/Creatinine Ratio 14 % 06/20/21 13:39 Glucose 86 mg/dL (65-100) 06/20/21 13:39 Calcium 9.4 mg/dL (8.4-10.2) 06/20/21 13:39 Magnesium 2.10 mg/dL (1.7-2.3) 06/20/21 13:39 Total Bilirubin 1.10 mg/dL (0.1-1.2) 06/20/21 13:39 AST 13 units/L (5-40) 06/20/21 13:39 ALT 9 units/L (7-56) 06/20/21 13:39 Alkaline Phosphatase 85 units/L (35-129) 06/20/21 13:39 Troponin T < 0.010 ng/mL (0.00-0.029) 06/20/21 13:39 Total Protein 8.2 g/dL (6.3-8.2) 06/20/21 13:39 Albumin 4.3 g/dL (3.9-5) 06/20/21 13:39 Albumin/Globulin Ratio 1.1 % 06/20/21 13:39 - Imaging and Cardiology EKG: report reviewed Chest x-ray: report reviewed (No acute findings) Assessment and Plan Advance Directives: Yes (Full code) VTE prophylaxis?: Chemical Plan of care discussed with patient/family: Yes - Patient Problems (1) Acute respiratory failure with hypoxia Current Visit: Yes Status: Acute Plan to address problem: Oxygen supplementation for now CPAP if necessary Intubation if necessary (2) COPD exacerbation Current Visit: Yes Status: Acute Plan to address problem: DuoNebs [id number] and as needed, IV antibiotics and IV Solu-Medrol (3) Nicotine dependence Current Visit: Yes Status: Chronic Qualifiers: Nicotine product type: cigarettes Plan to address problem: Counseled NicoDerm patch initiated (4) Polycythemia due to fall in plasma volume Current Visit: Yes Status: Chronic Plan to address problem: Secondary to fall in plasma volume and also hypoxia IV fluids for now Referred to hematology if necessary as outpatient (5) Marijuana use Current Visit: Yes Status: Chronic Plan to address problem: Counselled (6) DVT prophylaxis Current Visit: Yes Status: Acute Plan to address problem: On anticoagulation GI prophylaxis
[2021-06-20] MEDS ORDERED: ALBUTEROL 2.5 MG/3 ML NEBU IH PRN (20:57)
[2021-06-20] MEDS: HEPARIN 5,000 UNIT/1 ML VIAL SUB-Q SCH (23:02)
[2021-06-20] MEDS: FAMOTIDINE 20 MG TAB PO SCH (23:03)
[2021-06-20] MEDS: methylPREDNISolone Sod Succinate 125 MG/2 ML INJ IV SCH (23:03)
[2021-06-21] MEDS: methylPREDNISolone Sod Succinate 125 MG/2 ML INJ IV SCH ×3 (05:54→21:30)
[2021-06-21 07:38] LABS: Basophils % (Auto) 0.5 % (0.0-1.8); Eosinophils % (Auto) 0.3 % (0.0-4.3); Hematocrit 49.2 % (30.3-42.9); Lymphocytes # (Auto) 0.7 K/mm3 (1.2-5.4); Mean Corpuscular HGB Conc 33 % (30-34); Mean Corpuscular Volume 90 fl (79-97); Monocytes # (Auto) 0.1 K/mm3 (0.0-0.8); Monocytes % (Auto) 1.1 % (0.0-7.3); Platelet Count 280 K/mm3 (140-440); Red Blood Count 5.45 M/mm3 (3.65-5.03); Red Cell Distribution Width 14.4 % (13.2-15.2)
[2021-06-21] MEDS: IPRATROPIUM/ALBUTEROL SULFATE 3 ML AMPUL.NEB IH SCH ×4 (07:56→20:26)
[2021-06-21 08:02] LABS: Alanine Aminotransferase 7 units/L (7-56); Albumin 3.8 g/dL (3.9-5); Blood Urea Nitrogen 11 mg/dL (7-17); Calcium 9.2 mg/dL (8.4-10.2); Hemolysis Index 7
[2021-06-21 08:03] LABS: BUN/Creatinine Ratio 18
--- NOTE | 2021-06-21 09:03 | Electrocardiograph Report ---
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
[2021-06-21] MEDS: NICOTINE 14 MG/24 HR PATCH TD SCH (09:22)
[2021-06-21] MEDS: FAMOTIDINE 20 MG TAB PO SCH ×2 (09:23→21:30)
[2021-06-21] MEDS: oxyCODONE /ACETAMINOPHEN 5-325MG TAB PO PRN ×2 (09:23→20:50)
[2021-06-21] MEDS: HEPARIN 5,000 UNIT/1 ML VIAL SUB-Q SCH ×2 (09:24→21:30)
--- NOTE | 2021-06-21 20:02 | Progress Note ---
Assessment and Plan Assessment and plan: 61-year-old female with history of COPD, nicotine dependence, cocaine use and marijuana use comes in for increasing shortness of breath. Cough productive of mucoid sputum. Previous admission was reviewed which was consistent with COPD exacerbation. No fever or chills. Patient is vaccinated. Complains of chest tightness wheezing and mucus production. No loss of taste or smell. Patient was hypoxic in the emergency room. In the high 80s. (1) Acute respiratory failure with hypoxia Current Visit: Yes Status: Acute Plan to address problem: Oxygen supplementation for now Wean as tolerated Never needed home O2 (2) COPD exacerbation Current Visit: Yes Status: Acute Plan to address problem: No pneumonia on chest x-ray which is unremarkable DuoNebs [id number] and as needed, IV antibiotics and IV Solu-Medrol Symptoms much better today (3) Nicotine dependence Current Visit: Yes Status: Chronic Qualifiers: Nicotine product type: cigarettes Plan to address problem: Smoked for 30 years and cutting back since 6 months counseled NicoDerm patch initiated (4) 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 Possible discharge in 1 to 2 days. History Interval history: Patient is awake, alert and oriented. Patient admits to using cocaine. She is a smoker but smoking less now according patient. Cough and breathing better since admitted. Afebrile. Vital signs stable. On 2 L of O2. No purulent sputum chest pains or hemoptysis. Hospitalist Physical - Constitutional Vitals: Temp Pulse Resp BP Pulse Ox 98.1 F 78 19 135/83 96 06/21/21 17:00 06/21/21 17:00 06/21/21 17:00 06/21/21 17:00 06/21/21 17:00 General appearance: Present: no acute distress, well-nourished - EENT Eyes: Present: PERRL, EOM intact ENT: clear oral mucosa - Neck Neck: Present: supple - Respiratory Respiratory effort: normal Respiratory: bilateral: diminished (Coarse breath sounds, no significant wheezes.) - Cardiovascular Rhythm: regular - Extremities Extremities: No edema - Abdominal General gastrointestinal: soft, non-tender, non-distended, normal bowel sounds - Integumentary Integumentary: Absent: rash - Psychiatric Psychiatric: appropriate mood/affect - Neurologic Neurologic: no focal deficits, moves all extremities HEART Score - HEART Score Troponin: Troponin T < 0.010 ng/mL (0.00-0.029) 06/20/21 13:39 Results - Labs CBC & Chem 7: 06/21/21 07:12 06/21/21 07:12 Labs: Laboratory Last Values WBC 6.5 K/mm3 (4.5-11.0) 06/21/21 07:12 RBC 5.45 M/mm3 (3.65-5.03) H 06/21/21 07:12 Hgb 16.0 gm/dl (10.1-14.3) H 06/21/21 07:12 Hct 49.2 % (30.3-42.9) H D 06/21/21 07:12 MCV 90 fl (79-97) 06/21/21 07:12 MCH 29 pg (28-32) 06/21/21 07:12 MCHC 33 % (30-34) 06/21/21 07:12 RDW 14.4 % (13.2-15.2) 06/21/21 07:12 Plt Count 280 K/mm3 (140-440) 06/21/21 07:12 Lymph % (Auto) 11.0 % (13.4-35.0) L 06/21/21 07:12 [place] % (Auto) 1.1 % (0.0-7.3) 06/21/21 07:12 Eos % (Auto) 0.3 % (0.0-4.3) 06/21/21 07:12 Baso % (Auto) 0.5 % (0.0-1.8) 06/21/21 07:12 Lymph # (Auto) 0.7 K/mm3 (1.2-5.4) L 06/21/21 07:12 [place] # (Auto) 0.1 K/mm3 (0.0-0.8) 06/21/21 07:12 Eos # (Auto) 0.0 K/mm3 (0.0-0.4) 06/21/21 07:12 Baso # (Auto) 0.0 K/mm3 (0.0-0.1) 06/21/21 07:12 Seg Neutrophils % 87.1 % (40.0-70.0) H 06/21/21 07:12 Seg Neutrophils # 5.6 K/mm3 (1.8-7.7) 06/21/21 07:12 PT 13.2 Sec. (12.2-14.9) 06/20/21 13:39 INR 0.90 (0.87-1.13) 06/20/21 13:39 ABG pH 7.398 pH Units (7.350-7.450) 06/20/21 16:00 ABG pCO2 36.6 mm Hg 06/20/21 16:00 ABG pO2 57.9 mm Hg (80.0-90.0) L 06/20/21 16:00 ABG HCO3 22.0 mmol/L (20.0-26.0) 06/20/21 16:00 ABG O2 Saturation 92.6 % (95.0-99.0) L 06/20/21 16:00 ABG O2 Content 18.8 (0.0-44) 06/20/21 16:00 ABG Base Excess -2.2 mmol/L (-2.0-3.0) L 06/20/21 16:00 ABG Hemoglobin 18.0 gm/dl (12.0-16.0) H 06/20/21 16:00 ABG Carboxyhemoglobin 8.5 % (0.0-5.0) H 06/20/21 16:00 ABG Methemoglobin 0.5 % (0.0-1.5) 06/20/21 16:00 Oxyhemoglobin 84.3 % (95.0-99.0) L 06/20/21 16:00 FiO2 21 % 06/20/21 16:00 Sodium 136 mmol/L (137-145) L 06/21/21 07:12 Potassium 4.8 mmol/L (3.6-5.0) 06/21/21 07:12 Chloride 103.9 mmol/L (98-107) 06/21/21 07:12 Carbon Dioxide 23 mmol/L (22-30) 06/21/21 07:12 Anion Gap 14 mmol/L 06/21/21 07:12 BUN 11 mg/dL (7-17) 06/21/21 07:12 Creatinine 0.6 mg/dL (0.6-1.2) 06/21/21 07:12 Estimated GFR > 60 ml/min 06/21/21 07:12 BUN/Creatinine Ratio 18 % 06/21/21 07:12 Glucose 142 mg/dL (65-100) H 06/21/21 07:12 POC Glucose 136 mg/dL (70-105) H 06/21/21 11:47 Calcium 9.2 mg/dL (8.4-10.2) 06/21/21 07:12 Magnesium 2.10 mg/dL (1.7-2.3) 06/20/21 13:39 Total Bilirubin 0.50 mg/dL (0.1-1.2) 06/21/21 07:12 AST 10 units/L (5-40) 06/21/21 07:12 ALT 7 units/L (7-56) 06/21/21 07:12 Alkaline Phosphatase 69 units/L (35-129) 06/21/21 07:12 Troponin T < 0.010 ng/mL (0.00-0.029) 06/20/21 13:39 Total Protein 7.0 g/dL (6.3-8.2) 06/21/21 07:12 Albumin 3.8 g/dL (3.9-5) L 06/21/21 07:12 Albumin/Globulin Ratio 1.2 % 06/21/21 07:12 Anna/IV: Voiding Method Toilet Active Medications - Current Medications Current Medications: Generic Name Dose Route Start Last Admin Trade Name Freq PRN Reason Stop Dose Admin Acetaminophen 650 mg 06/20/21 20:45 06/21/21 04:22 Acetaminophen 325 Mg Tab PO 650 mg Q4H PRN Administration Pain MILD(1-3)/Fever >100.5/GONZALEZ Albuterol 2.5 mg 06/20/21 20:57 Albuterol 2.5 Mg/3 Ml Nebu IH Q3HRT PRN Wheezing Albuterol/Ipratropium 1 ampul 06/21/21 08:00 06/21/21 16:10 Ipratropium/Albuterol Sulfate 3 Ml Ampul.Neb IH Not Given QIDRT SEBASTIÁN Famotidine 20 mg 06/20/21 22:00 06/21/21 09:23 Famotidine 20 Mg Tab PO 20 mg BID SEBASTIÁN Administration Heparin Sodium (Porcine) 5,000 unit 06/20/21 22:00 06/21/21 09:24 Heparin 5,000 Unit/1 Ml Vial SUB-Q 5,000 unit Q12HR SEBASTIÁN Administration Hydromorphone HCl 0.5 mg 06/20/21 20:47 Hydromorphone 1 Mg/1 Ml Inj IV Q3H PRN Pain , Severe (7-10) Levofloxacin/Dextrose 750 mg in 150 mls @ 100 mls/hr 06/20/21 21:00 06/20/21 23:02 Levaquin 750mg/150ml IV 06/24/21 23:59 100 mls/hr Q24H SEBASTIÁN Administration Protocol Methylprednisolone Sodium Succinate 60 mg 06/20/21 22:00 06/21/21 16:30 Methylprednisolone Sod Succinate 125 Mg/2 Ml Inj IV 60 mg Q8HR SEBASTIÁN Administration Metoclopramide HCl 10 mg 06/20/21 20:47 Metoclopramide 10 Mg/2 Ml Inj IV Q6H PRN Nausea And Vomiting Nicotine 14 mg 06/21/21 10:00 06/21/21 09:22 Nicotine 14 Mg/24 Hr Patch TD 14 mg QDAY SEBASTIÁN Administration Ondansetron HCl 4 mg 06/20/21 20:45 Ondansetron 4 Mg/2 Ml Inj IV Q8H PRN Nausea And Vomiting Oxycodone/Acetaminophen 1 tab 06/20/21 20:47 06/21/21 09:23 Oxycodone /Acetaminophen 5-325mg Tab PO 1 tab Q6H PRN Administration Pain, Moderate (4-6) Sodium Chloride 10 ml 06/20/21 22:00 06/21/21 09:25 Sodium Chloride 0.9% 10 Ml Flush Syringe IV 10 ml BID SEBASTIÁN Administration Sodium Chloride 10 ml 06/20/21 20:45 Sodium Chloride 0.9% 10 Ml Flush Syringe IV PRN PRN LINE FLUSH
[2021-06-22] MEDS: methylPREDNISolone Sod Succinate 125 MG/2 ML INJ IV SCH ×2 (05:52→13:12)
[2021-06-22] MEDS: IPRATROPIUM/ALBUTEROL SULFATE 3 ML AMPUL.NEB IH SCH (08:00)
[2021-06-22] MEDS: FAMOTIDINE 20 MG TAB PO SCH (10:44)
[2021-06-22] MEDS: NICOTINE 14 MG/24 HR PATCH TD SCH (10:44)
[2021-06-22] MEDS: HEPARIN 5,000 UNIT/1 ML VIAL SUB-Q SCH (10:44)
[2021-06-22 12:22] VITALS: BP 137/82
[2021-06-22] MEDS ORDERED: IPRATROPIUM/ALBUTEROL SULFATE 3 ML AMPUL.NEB IH SCH (14:00)
--- NOTE | 2021-06-22 14:46 | Discharge Summary ---
Providers - Providers Date of Admission: 06/21/21 14:05 Attending physician: GARY FREY MD Primary care physician: PARTS DRIVER Hospitalization Condition: Stable Disposition: 01 HOME / SELF CARE / HOMELESS Exam - Constitutional Vitals: Temp Pulse Resp BP Pulse Ox 98.0 F 89 20 137/82 95 06/22/21 11:51 06/22/21 14:19 06/22/21 14:19 06/22/21 11:51 06/22/21 11:51 General appearance: Present: no acute distress - EENT Eyes: Present: PERRL ENT: clear oral mucosa - Neck Neck: Present: supple - Respiratory Respiratory effort: normal Respiratory: bilateral: CTA, diminished - Cardiovascular Rhythm: regular - Extremities Extremities: No edema - Abdominal General gastrointestinal: Present: soft, non-tender - Integumentary Integumentary: Absent: rash - Psychiatric Psychiatric: appropriate mood/affect - Neurologic Neurologic: no focal deficits, moves all extremities Plan Activity: advance as tolerated Diet: low fat, low salt Follow up with: ALICE HULL MD [Staff Physician] - 3-5 Days TOM CHAVEZ MD [Staff Physician] - 3-5 Days Prescriptions: Prednisone [predniSONE 5 mg (6-Day Pack, 21 Tabs)] 5 mg PO .TAPER #1 tab.ds.pk Albuterol Mdi (or & Nicu Only) [ProAir HFA Inhaler] 2 puff IH QID PRN #8.5 gram PRN Reason: Shortness Of Breath DOXYCYCLINE Hyclate [Vibramycin] 100 mg PO Q12HR #10 capsule
[2021-06-22] MEDS: oxyCODONE /ACETAMINOPHEN 5-325MG TAB PO PRN (15:40)
== END 2021-06-22 18:26 | disposition home or self-care (01) | DRG 189 ==
LOC: ED 13:08 → 3A 15:58 → OBSVTOIN 06-21 14:05
PROVIDERS: ADMIT Internal Medicine; ATTEND Internal Medicine
DX: J96.01 Acute respiratory failure with hypoxia (principal); J44.1 Chronic obstructive pulmonary disease with (acute) exacerbation; D75.1 Secondary polycythemia; J45.909 Unspecified asthma, uncomplicated; F12.90 Cannabis use, unspecified, uncomplicated; F14.90 Cocaine use, unspecified, uncomplicated; F17.200 Nicotine dependence, unspecified, uncomplicated
CPT/HCPCS: 36415; 71045; 80053; 82803; 82962; 83735; 84484; 85025; 85610; 93005; 94640; 94644; 94760; G0378; J3490; Q0162; C9113; J0456; J0696; J1200; J1644; J1956; J2930; J3475; J7030; J7040

== ENCOUNTER 2021-08-05 11:16 | Emergency (ER) | payer SELFPAY ==
[2021-08-05 11:22] VITALS: BP 141/93
[2021-08-05] MEDS ORDERED: predniSONE 20 MG TAB PO ONE (11:22)
[2021-08-05] MEDS ORDERED: IPRATROPIUM/ALBUTEROL SULFATE 3 ML AMPUL.NEB IH ONE (11:22)
--- NOTE | 2021-08-05 11:33 | Emergency Department Report ---
ED Shortness of Breath HPI - General Chief Complaint: Dyspnea/Respdistress Stated Complaint: DIFFICULTY BREATHING Time Seen by Provider: 08/05/21 11:21 Source: EMS Mode of arrival: Ambulatory Limitations: No Limitations - History of Present Illness Initial Comments: Patient presents by EMS secondary to shortness of breath. She has a history of COPD. She been having trouble breathing. Patient states that she started having trouble breathing [place]. She has been evaluated by EMS multiple times. Patient called EMS again today because she could not catch her breath. EMS had reported the patient was in no distress. She was speaking in complete sentences. She was not hypoxic. Patient states that she has been having trouble because she was unable to afford her nebulizer machine. She states that when she was discharged from the hospital in June with COPD she could afford the medication but not the machine. Patient has been unable to afford the machine up until this point. She states that her inhaler is no longer functional and has run out. Patient denies cough. She has no chest pain. She states that her chest was tight last night when EMS was present. - Related Data Previous Rx's Medication Instructions Recorded Last Taken Type Albuterol Mdi (or & Nicu Only) 2 puff IH QID PRN #8.5 gram 08/05/21 Unknown Rx [ProAir HFA Inhaler] Prednisone [predniSONE 5 mg (6-Day 5 mg PO .TAPER #1 tab.ds.pk 08/05/21 Unknown Rx Pack, 21 Tabs)] Allergies Allergy/AdvReac Type Severity Reaction Status Date / Time codeine Allergy Anaphylaxis Verified 06/21/21 01:55 ED Review of Systems ROS: Stated complaint: DIFFICULTY BREATHING Other details as noted in HPI Comment: All other systems reviewed and negative Constitutional: denies: fever Eyes: denies: vision change ENT: denies: epistaxis Respiratory: see HPI Cardiovascular: as per HPI Endocrine: denies: unexplained weight loss Gastrointestinal: denies: abdominal pain Genitourinary: denies: dysuria Musculoskeletal: denies: back pain Skin: denies: rash Neurological: denies: headache Hematological/Lymphatic: denies: easy bruising ED Past Medical Hx - Past Medical History Hx Hypertension: No Hx Congestive Heart Failure: No Hx Diabetes: No Hx Sickle Cell Disease: No Hx Asthma: Yes Hx COPD: Yes Hx HIV: No - Family History Family history: no significant - Social History Smoking Status: Current Every Day Smoker (We discussed tobacco cessation x3 minutes) - Medications Home Medications: Home Medications Medication Instructions Recorded Confirmed Last Taken Type Albuterol Mdi (or & Nicu Only) 2 puff IH QID PRN #8.5 gram 08/05/21 Unknown Rx [ProAir HFA Inhaler] Prednisone [predniSONE 5 mg (6-Day 5 mg PO .TAPER #1 tab.ds.pk 08/05/21 Unknown Rx Pack, 21 Tabs)] ED Physical Exam - General Limitations: No Limitations, Other (Pulse ox noted and normal) General appearance: alert, in no apparent distress, other (Patient speaks in complete sentences) - Head Head exam: Present: atraumatic, normocephalic - Eye Eye exam: Present: normal appearance, EOMI - ENT ENT exam: Present: normal orophraynx, normal external ear exam - Neck Neck exam: Present: normal inspection. Absent: meningismus - Respiratory Respiratory exam: Present: wheezes (Bilateral end expiratory). Absent: respiratory distress - Cardiovascular Cardiovascular Exam: Present: regular rate, normal rhythm - GI/Abdominal GI/Abdominal exam: Present: soft. Absent: tenderness - Extremities Exam Extremities exam: Present: normal capillary refill. Absent: pedal edema - Back Exam Back exam: Absent: CVA tenderness (R), CVA tenderness (L) - Neurological Exam Neurological exam: Present: alert, oriented X3, CN II-XII intact, reflexes normal. Absent: motor sensory deficit - Psychiatric Psychiatric exam: Present: normal affect, normal mood - Skin Skin exam: Present: warm, dry ED Course Vital Signs 08/05/21 11:21 Temperature 98 F Pulse Rate 80 Respiratory 16 Rate Blood Pressure 141/93 [Right] O2 Sat by Pulse 99 Oximetry - Reevaluation(s) Reevaluation #1: 08/05/21 11:00 EMS was met upon arrival. DuoNeb was ordered. After the neb, patient was discharged. ED Medical Decision Making - Medical Decision Making Patient presented by ambulance secondary to COPD exacerbation. There are no adventitious breath sounds to suggest pneumonia. She has no cough or fever. I do not believe this represents coronavirus infection. She was wheezing. This is been addressed with a DuoNeb. Patient states that she could not afford her nebulizer machine. She has been referred to her PCP for recheck to work with child protective services social worker or case management in order to facilitate a durable medical equipment. Regardless, she does not require admission. She is not hypoxic. She is speaking in complete sentences. There is no exertional or orthopneic component suggestive of congestive heart failure. Critical Care Time: No Critical care attestation.: If time is entered above; I have spent that time in minutes in the direct care of this critically ill patient, excluding procedure time. ED Disposition Clinical Impression: COPD exacerbation Disposition: HOME / SELF CARE / HOMELESS Is pt being admited?: No Condition: Stable Instructions: Chronic Obstructive Pulmonary Disease (ED), Chronic Obstructive Pulmonary Disease Exacerbation, [id number], How to Use a Metered Dose Inhaler Additional Instructions: Usual medication. Follow-up with your regular doctor or the referral physician to work with case management on durable medical equipment. Stop smoking. Follow-up for further medication refills. Prescriptions: Prednisone [predniSONE 5 mg (6-Day Pack, 21 Tabs)] 5 mg PO .TAPER #1 tab.ds.pk Albuterol Mdi (or & Nicu Only) [ProAir HFA Inhaler] 2 puff IH QID PRN #8.5 gram PRN Reason: Shortness Of Breath Referrals: PRIMARY CAREMD [Referring] - 3-5 Days ALICE HULL MD [Staff Physician] - 3-5 Days
== END 2021-08-05 13:22 | disposition home or self-care (01) ==
LOC: ED 11:16
DX: J44.1 Chronic obstructive pulmonary disease with (acute) exacerbation (principal); J45.909 Unspecified asthma, uncomplicated; F17.200 Nicotine dependence, unspecified, uncomplicated; Z88.5 Allergy status to narcotic agent
CPT/HCPCS: 94640; 99283; J7512; 94644

== ENCOUNTER 2022-01-28 15:00 | Emergency (ER) | payer SELFPAY ==
[2022-01-28 15:06] VITALS: BP 151/78
--- NOTE | 2022-01-28 15:41 | XRay Report ---
CHEST 2 VIEWS INDICATION / CLINICAL INFORMATION: Shortness of breath for 2 weeks. COMPARISON: 11/09/2021 FINDINGS: SUPPORT DEVICES: None. HEART / MEDIASTINUM: No significant abnormality. LUNGS / PLEURA: No significant pulmonary or pleural abnormality. No pneumothorax. ADDITIONAL FINDINGS: No significant additional findings. IMPRESSION: 1. No acute findings. Signer Name: Alejo Hui Jr, MD Signed: 01/28/2022 3:37 PM Workstation Name: [id number]
== END 2022-01-28 23:09 | disposition left against medical advice (07) ==
LOC: ED 15:00
DX: R06.02 Shortness of breath (principal); Z53.21 Procedure and treatment not carried out due to patient leaving prior to being seen by health care provider
CPT/HCPCS: 71046

== ENCOUNTER 2022-02-10 09:31 | Emergency (ER) | payer SELFPAY ==
[2022-02-10] MEDS ORDERED: predniSONE 20 MG TAB PO ONE (12:10)
[2022-02-10] MEDS ORDERED: IPRATROPIUM/ALBUTEROL SULFATE 3 ML AMPUL.NEB IH ONE (12:10)
--- NOTE | 2022-02-10 13:02 | XRay Report ---
Lumbar spine 3 views INDICATION: Pain FINDINGS: Compression fractures of L1 and L2 with loss of vertebral body height from superior endplat e compression. There is loss of approximately 20-30% vertebral body height. Minimal anterolisthesis o f L4-L5. Facet changes are seen throughout. Atherosclerotic changes seen within the aorta. Signer Name: Sixto Demarco MD Signed: 02/10/2022 12:58 PM Workstation Name: [email or web address] [email or web address] [employer]
[2022-02-10] MEDS ORDERED: HYDROcodone/ACETAMINOPHEN 5-325 MG TAB PO ONE (13:05)
--- NOTE | 2022-02-10 13:05 | Emergency Department Report ---
ED Fall HPI - General Chief Complaint: Back Pain/Injury Stated Complaint: RIB PAIN/BACK PAIN Time Seen by Provider: 02/10/22 12:10 Source: patient, EMS Mode of arrival: Stretcher Limitations: No Limitations - History of Present Illness Initial Comments: 61 yo comes to ER sp fall on Sat from ladder. She is co back pain. Denies other injury. witnessed; no loc.She states she slipped and fell She has had no incontinence. She is ambulatory and neuro intact she has COPd and is requesting albuterol refill- shes been out for several weeks MD Complaint: fall -: Gradual Fall From: other When Fall Occurred: unsure Fall Witnessed: yes, by family Place Fall Occurred: home Loss of Consciousness: none Prolonged Down Time?: no Symptoms Prior to Fall: none Context: tripped/slipped Associated Symptoms: denies - Related Data Previous Rx's Medication Instructions Recorded Last Taken Type Albuterol Mdi (or & Nicu Only) 2 puff IH QID PRN #8.5 gram 08/05/21 Unknown Rx [ProAir HFA Inhaler] Prednisone [predniSONE 5 mg (6-Day 5 mg PO .TAPER #1 tab.ds.pk 08/05/21 Unknown Rx Pack, 21 Tabs)] Albuterol Mdi (or & Nicu Only) 2 puff IH QID PRN #1 inhalation 11/09/21 Unknown Rx [ProAir HFA Inhaler] Prednisone [predniSONE 10 mg 10 mg PO .TAPER #1 tab.ds.pk 11/09/21 Unknown Rx (6-Day Pack, 21 Tabs)] ALBUTEROL NEB's [Proventil 0.083% 2.5 mg IH TID PRN #1 box 02/10/22 Unknown Rx NEBS] Acetaminophen/Codeine [Tylenol 1 tab PO Q6H PRN #12 tab 02/10/22 Unknown Rx /Codeine # 3 tab] Albuterol Mdi (or & Nicu Only) 2 puff IH QID PRN #1 inhalation 02/10/22 Unknown Rx [ProAir HFA Inhaler] Cyclobenzaprine [Flexeril] 10 mg PO TID PRN #10 tablet 02/10/22 Unknown Rx Ibuprofen [Motrin] 800 mg PO Q8HR PRN #30 tablet 02/10/22 Unknown Rx Allergies Allergy/AdvReac Type Severity Reaction Status Date / Time codeine Allergy Anaphylaxis Verified 02/10/22 09:39 ED Review of Systems ROS: Stated complaint: RIB PAIN/BACK PAIN Other details as noted in HPI Comment: All other systems reviewed and negative ED Past Medical Hx - Past Medical History Previous Medical History?: Yes Hx Hypertension: No Hx Congestive Heart Failure: No Hx Diabetes: No Hx Sickle Cell Disease: No Hx Asthma: Yes Hx COPD: Yes Hx HIV: No - Surgical History Past Surgical History?: No - Family History Family history: no significant - Social History Smoking Status: Current Every Day Smoker (We discussed tobacco cessation x3 minutes) Substance Use Type: None - Medications Home Medications: Home Medications Medication Instructions Recorded Confirmed Last Taken Type Albuterol Mdi (or & Nicu Only) 2 puff IH QID PRN #8.5 gram 08/05/21 Unknown Rx [ProAir HFA Inhaler] Prednisone [predniSONE 5 mg (6-Day 5 mg PO .TAPER #1 tab.ds.pk 08/05/21 Unknown Rx Pack, 21 Tabs)] Albuterol Mdi (or & Nicu Only) 2 puff IH QID PRN #1 inhalation 11/09/21 Unknown Rx [ProAir HFA Inhaler] Prednisone [predniSONE 10 mg 10 mg PO .TAPER #1 tab.ds.pk 11/09/21 Unknown Rx (6-Day Pack, 21 Tabs)] ALBUTEROL NEB's [Proventil 0.083% 2.5 mg IH TID PRN #1 box 02/10/22 Unknown Rx NEBS] Acetaminophen/Codeine [Tylenol 1 tab PO Q6H PRN #12 tab 02/10/22 Unknown Rx /Codeine # 3 tab] Albuterol Mdi (or & Nicu Only) 2 puff IH QID PRN #1 inhalation 02/10/22 Unknown Rx [ProAir HFA Inhaler] Cyclobenzaprine [Flexeril] 10 mg PO TID PRN #10 tablet 02/10/22 Unknown Rx Ibuprofen [Motrin] 800 mg PO Q8HR PRN #30 tablet 02/10/22 Unknown Rx ED Physical Exam - General Limitations: No Limitations General appearance: alert, in no apparent distress - Head Head exam: Present: atraumatic, normocephalic - Eye Eye exam: Present: normal appearance - ENT ENT exam: Present: mucous membranes moist - Neck Neck exam: Present: normal inspection - Respiratory Respiratory exam: Present: normal lung sounds bilaterally. Absent: respiratory distress - Cardiovascular Cardiovascular Exam: Present: regular rate, normal rhythm. Absent: systolic murmur, diastolic murmur, rubs, gallop - GI/Abdominal GI/Abdominal exam: Present: soft, normal bowel sounds - Extremities Exam Extremities exam: Present: normal inspection - Back Exam Back exam: Present: normal inspection - Neurological Exam Neurological exam: Present: alert, oriented X3 - Psychiatric Psychiatric exam: Present: normal affect, normal mood - Skin Skin exam: Present: warm, dry, intact, normal color. Absent: rash ED Course Vital Signs 02/10/22 02/10/22 09:34 15:31 Temperature 97.6 F Pulse Rate 88 71 Respiratory 18 18 Rate Blood Pressure 120/90 134/84 [Left] O2 Sat by Pulse 94 100 Oximetry ED Medical Decision Making - Radiology Data Radiology results: report reviewed, image reviewed see report - Medical Decision Making Vital Signs (72 hours) 02/10/22 09:34 Pulse Rate 88 Respiratory 18 Rate Blood Pressure 120/90 [Left] O2 Sat by Pulse 94 Oximetry [address] GAONA [facility] has no TLSO Dr Reed office phoned for assistance with TLSO Pt medicated for pain neuro intact TLSO placed pt being dc home with dc plan of care including diet, med, activity and follow up. She verbalizes understanding of plan of care. on dc exam she remains neuro intact and in nad - Differential Diagnosis RO FX Critical care attestation.: If time is entered above; I have spent that time in minutes in the direct care of this critically ill patient, excluding procedure time. ED Disposition Clinical Impression: Medication refill Fall Qualifiers: Encounter type: initial encounter Qualified Code(s): W19.XXXA - Unspecified fall, initial encounter Lumbar compression fracture Qualifiers: Encounter type: initial encounter Lumbar vertebra fracture level: L4 Qualified Code(s): S32.040A - Wedge compression fracture of fourth lumbar vertebra, initial encounter for closed fracture Disposition: 01 HOME / SELF CARE / HOMELESS Is pt being admited?: No Does the pt Need Aspirin: No Condition: Stable Instructions: Spinal Compression Fracture Additional Instructions: MEDS ORDERED BRACE EXCEPT WHEN BATHING FOLLOW UP WITH PCP FOR MED REFILLS REFERRAL BELOW FOLLOW UP WITH ORTHO FOR BACK MANAGEMENT REFERRAL BELOW Prescriptions: Cyclobenzaprine [Flexeril] 10 mg PO TID PRN #10 tablet PRN Reason: Muscle Spasm Ibuprofen [Motrin] 800 mg PO Q8HR PRN #30 tablet PRN Reason: Pain, Moderate (4-6) Albuterol Mdi (or & Nicu Only) [ProAir HFA Inhaler] 2 puff IH QID PRN #1 inhalation PRN Reason: Shortness Of Breath ALBUTEROL NEB's [Proventil 0.083% NEBS] 2.5 mg IH TID PRN #1 box PRN Reason: Wheezing Acetaminophen/Codeine [Tylenol /Codeine # 3 tab] 1 tab PO Q6H PRN #12 tab PRN Reason: Pain , Severe (7-10) Referrals: PRIMARY CARE, [Primary Care Provider] - 3-5 Days ALICE HULL MD [Staff Physician] - 3-5 Days ONEAL GAONA MD [Staff Physician] - 3-5 Days Time of Disposition: 13:05
[2022-02-10] MEDS ORDERED: CYCLOBENZAPRINE 10 MG TAB PO ONE (13:06)
[2022-02-10 15:32] VITALS: BP 134/84
== END 2022-02-10 15:32 | disposition home or self-care (01) ==
LOC: ED 09:31
DX: S32.009A Unspecified fracture of unspecified lumbar vertebra, initial encounter for closed fracture (principal); J44.9 Chronic obstructive pulmonary disease, unspecified; F17.290 Nicotine dependence, other tobacco product, uncomplicated; Z88.5 Allergy status to narcotic agent; W11.XXXA Fall on and from ladder, initial encounter; Y93.89 Activity, other specified; Y92.89 Other specified places as the place of occurrence of the external cause; Y99.8 Other external cause status
CPT/HCPCS: 72100; 94640; 99284

== ENCOUNTER 2022-04-08 17:21 | Emergency (ER) | payer SELFPAY ==
--- NOTE | 2022-04-08 18:38 | XRay Report ---
CHEST 2 VIEWS INDICATION / CLINICAL INFORMATION: flu. COMPARISON: 2 views of the chest from 01/28/2022. FINDINGS: SUPPORT DEVICES: None. HEART / MEDIASTINUM: No significant abnormality. LUNGS / PLEURA: No significant pulmonary abnormality. No significant pleural effusion. No pneumothora x. ADDITIONAL FINDINGS: No significant additional findings. IMPRESSION: 1. No acute abnormality of the chest. Signer Name: Abdifatah Glasgow MD Signed: 04/08/2022 6:33 PM Workstation Name: [id number]
[2022-04-08 19:08] LABS: Basophils # (Auto) 0.1 K/mm3 (0.0-0.1); Basophils % (Auto) 0.6 % (0.0-1.8); Eosinophils % (Auto) 0.2 % (0.0-4.3); Hematocrit 54.2 % (30.3-42.9); Hemoglobin 17.3 gm/dl (10.1-14.3); Lymphocytes # (Auto) 1.3 K/mm3 (1.2-5.4); Lymphocytes % (Auto) 8.7 % (13.4-35.0); Mean Corpuscular HGB Conc 32 % (30-34); Mean Corpuscular Volume 89 fl (79-97); Monocytes # (Auto) 1.1 K/mm3 (0.0-0.8); Monocytes % (Auto) 7.4 % (0.0-7.3); Platelet Count 265 K/mm3 (140-440); Red Blood Count 6.09 M/mm3 (3.65-5.03); Red Cell Distribution Width 16.9 % (13.2-15.2)
[2022-04-08 19:59] LABS: Alanine Aminotransferase 9 units/L (7-56); Albumin 3.8 g/dL (3.9-5); Blood Urea Nitrogen 8 mg/dL (7-17); Calcium 9.2 mg/dL (8.4-10.2); Hemolysis Index 87
[2022-04-08 20:09] LABS: BUN/Creatinine Ratio 16
[2022-04-09] MEDS ORDERED: IPRATROPIUM/ALBUTEROL SULFATE 3 ML AMPUL.NEB IH ONE (01:35)
[2022-04-09] MEDS ORDERED: HYDROcodone/ACETAMINOPHEN 5-325 MG TAB PO ONE (01:35)
[2022-04-09] MEDS ORDERED: predniSONE 20 MG TAB PO ONE (01:35)
[2022-04-09] MEDS ORDERED: AMOXICILLIN/K CLAV 875/125MG TAB PO ONE (01:40)
[2022-04-09] MEDS ORDERED: ONDANSETRON 4 MG ODT TAB PO ONE (02:04)
--- NOTE | 2022-04-09 03:45 | Emergency Department Report ---
ED General Adult HPI - General Chief complaint: Upper Respiratory Infection Stated complaint: FLU SYM Time Seen by Provider: 04/09/22 01:06 Source: EMS Mode of arrival: Stretcher Limitations: No Limitations - History of Present Illness Initial comments: 61-year-old female past medical history COPD reports to the ER with complaints of cough for a week and a half with yellow and greenish sputum. Patient also reports intermittent shortness of breath. Patient reports coughing has caused her to have intermittent chest discomfort when she coughs. Patient denies dizziness, weakness, headaches. No chest pain and absence of cough. No other acute signs or symptoms reported. Severity scale (0 -10): 2 - Related Data Previous Rx's Medication Instructions Recorded Last Taken Type Albuterol Mdi (or & Nicu Only) 2 puff IH QID PRN #8.5 gram 08/05/21 Unknown Rx [ProAir HFA Inhaler] Prednisone [predniSONE 5 mg (6-Day 5 mg PO .TAPER #1 tab.ds.pk 08/05/21 Unknown Rx Pack, 21 Tabs)] Albuterol Mdi (or & Nicu Only) 2 puff IH QID PRN #1 inhalation 11/09/21 Unknown Rx [ProAir HFA Inhaler] Prednisone [predniSONE 10 mg 10 mg PO .TAPER #1 tab.ds.pk 11/09/21 Unknown Rx (6-Day Pack, 21 Tabs)] ALBUTEROL NEB's [Proventil 0.083% 2.5 mg IH TID PRN #1 box 02/10/22 Unknown Rx NEBS] Acetaminophen/Codeine [Tylenol 1 tab PO Q6H PRN #12 tab 02/10/22 Unknown Rx /Codeine # 3 tab] Albuterol Mdi (or & Nicu Only) 2 puff IH QID PRN #1 inhalation 02/10/22 Unknown Rx [ProAir HFA Inhaler] Cyclobenzaprine [Flexeril] 10 mg PO TID PRN #10 tablet 02/10/22 Unknown Rx Ibuprofen [Motrin] 800 mg PO Q8HR PRN #30 tablet 02/10/22 Unknown Rx Albuterol Sulfate [Proventil Hfa] 6.7 gm IH Q4HR PRN 30 Days #1 inh 04/09/22 Unknown Rx Amoxicillin/K Clav Tab [Augmentin 1 tab PO Q12HR 7 Days #14 tab 04/09/22 Unknown Rx 875 mg] predniSONE [Deltasone] 20 mg PO QDAY 5 Days #5 tab 04/09/22 Unknown Rx Allergies Allergy/AdvReac Type Severity Reaction Status Date / Time codeine Allergy Anaphylaxis Verified 02/10/22 09:39 ED Review of Systems ROS: Stated complaint: FLU SYM Other details as noted in HPI Comment: All other systems reviewed and negative ENT: congestion Respiratory: cough, shortness of breath ED Past Medical Hx - Past Medical History Previous Medical History?: Yes Hx Hypertension: No Hx Congestive Heart Failure: No Hx Diabetes: No Hx Sickle Cell Disease: No Hx Asthma: Yes Hx COPD: Yes Hx HIV: No - Social History Smoking Status: Current Every Day Smoker (We discussed tobacco cessation x3 minutes) Substance Use Type: None - Medications Home Medications: Home Medications Medication Instructions Recorded Confirmed Last Taken Type Albuterol Mdi (or & Nicu Only) 2 puff IH QID PRN #8.5 gram 08/05/21 Unknown Rx [ProAir HFA Inhaler] Prednisone [predniSONE 5 mg (6-Day 5 mg PO .TAPER #1 tab.ds.pk 08/05/21 Unknown Rx Pack, 21 Tabs)] Albuterol Mdi (or & Nicu Only) 2 puff IH QID PRN #1 inhalation 11/09/21 Unknown Rx [ProAir HFA Inhaler] Prednisone [predniSONE 10 mg 10 mg PO .TAPER #1 tab.ds.pk 11/09/21 Unknown Rx (6-Day Pack, 21 Tabs)] ALBUTEROL NEB's [Proventil 0.083% 2.5 mg IH TID PRN #1 box 02/10/22 Unknown Rx NEBS] Acetaminophen/Codeine [Tylenol 1 tab PO Q6H PRN #12 tab 02/10/22 Unknown Rx /Codeine # 3 tab] Albuterol Mdi (or & Nicu Only) 2 puff IH QID PRN #1 inhalation 02/10/22 Unknown Rx [ProAir HFA Inhaler] Cyclobenzaprine [Flexeril] 10 mg PO TID PRN #10 tablet 02/10/22 Unknown Rx Ibuprofen [Motrin] 800 mg PO Q8HR PRN #30 tablet 02/10/22 Unknown Rx Albuterol Sulfate [Proventil Hfa] 6.7 gm IH Q4HR PRN 30 Days #1 inh 04/09/22 Unknown Rx Amoxicillin/K Clav Tab [Augmentin 1 tab PO Q12HR 7 Days #14 tab 04/09/22 Unknown Rx 875 mg] predniSONE [Deltasone] 20 mg PO QDAY 5 Days #5 tab 04/09/22 Unknown Rx ED Physical Exam - General Limitations: No Limitations General appearance: alert, in no apparent distress - Head Head exam: Present: atraumatic, normocephalic - Eye Eye exam: Present: normal appearance - ENT ENT exam: Present: mucous membranes moist - Neck Neck exam: Present: normal inspection - Respiratory Respiratory exam: Present: normal lung sounds bilaterally, wheezes. Absent: respiratory distress, rales, rhonchi, accessory muscle use - Cardiovascular Cardiovascular Exam: Present: regular rate, normal rhythm. Absent: systolic murmur, diastolic murmur, rubs, gallop - GI/Abdominal GI/Abdominal exam: Present: soft, normal bowel sounds - Extremities Exam Extremities exam: Present: normal inspection - Back Exam Back exam: Present: normal inspection - Neurological Exam Neurological exam: Present: alert, oriented X3 - Psychiatric Psychiatric exam: Present: normal affect, normal mood - Skin Skin exam: Present: warm, dry, intact, normal color. Absent: rash ED Course Vital Signs 04/08/22 04/09/22 04/09/22 17:41 02:19 04:58 Temperature 100.5 F H 99.1 F Pulse Rate 72 122 H 85 Respiratory 17 16 18 Rate Blood Pressure 145/74 144/76 143/87 [Left] O2 Sat by Pulse 100 94 97 Oximetry ED Medical Decision Making - Lab Data Result diagrams: 04/08/22 18:42 04/08/22 18:42 - Radiology Data [facility] [address] [place] [address] XRay Report Signed Patient: RENETTA BACK MR#: [id number] : 1960 Acct:[id number] Age/Sex: 61 / F ADM Date: 04/08/22 Loc: ED Attending Dr: Ordering Physician: ED MD DANIELLE Date of Service: 04/08/22 Procedure(s): XR chest routine 2V Accession Number(s): [id number] cc: ED MD DANIELLE Fluoro Time In Minutes: CHEST 2 VIEWS INDICATION / CLINICAL INFORMATION: flu. COMPARISON: 2 views of the chest from 01/28/2022. FINDINGS: SUPPORT DEVICES: None. HEART / MEDIASTINUM: No significant abnormality. LUNGS / PLEURA: No significant pulmonary abnormality. No significant pleural effusion. No pneumothorax. ADDITIONAL FINDINGS: No significant additional findings. IMPRESSION: 1. No acute abnormality of the chest. Signer Name: Abdifatah Glasgow MD Signed: 04/08/2022 6:33 PM Workstation Name: [id number] Transcribed By: MN Dictated By: Abdifatah Glasgow MD Electronically Authenticated By: Abdifatah Glasgow MD Signed Date/Time: 04/08/221832 DD/ 32 TD/TT: - Medical Decision Making 61-year-old female past medical history COPD reports to the ER with complaints of cough for a week and a half with yellow and greenish sputum. Patient also reports intermittent shortness of breath. Patient reports coughing has caused her to have intermittent chest discomfort when she coughs. Patient denies dizziness, weakness, headaches. No chest pain and absence of cough. No other acute signs or symptoms reported. On physical exam patient is tachypneic is about 24 breaths/min. Patient has wheezing in bilateral lung roberts. Nasal congestion with drainage noted. X-ray with no acute process noted. Patient received DuoNeb here in the ER along with steroids. On reevaluation patient has a decrease in wheezing in bilateral lung roberts as well as patient reports she feels better. Patient is flu negative. Patient respiratory rate has improved to about 18 breaths/min. Patient is 97% on room air patient heart rate has improved. Patient agrees with plan of care and verbalized understanding. Patient informed to follow her primary care provider as as needed as well as for management of her COPD. No further work-up is needed at this time. Vital Signs 04/08/22 04/09/22 04/09/22 17:41 02:19 04:58 Temperature 100.5 F H 99.1 F Pulse Rate 72 122 H 85 Respiratory 17 16 18 Rate Blood Pressure 145/74 144/76 143/87 [Left] O2 Sat by Pulse 100 94 97 Oximetry Labs 04/08/22 04/08/22 04/09/22 18:42 18:42 Unknown WBC 15.0 H RBC 6.09 H Hgb 17.3 H Hct 54.2 H MCV 89 MCH 28 MCHC 32 RDW 16.9 H Plt Count 265 Lymph % (Auto) 8.7 L [place] % (Auto) 7.4 H Eos % (Auto) 0.2 Baso % (Auto) 0.6 Lymph # (Auto) 1.3 [place] # (Auto) 1.1 H Eos # (Auto) 0.0 Baso # (Auto) 0.1 Seg Neutrophils % 83.1 H Seg Neutrophils # 12.5 H Sodium 137 Potassium 3.9 Chloride 99.4 Carbon Dioxide 24 Anion Gap 18 BUN 8 Creatinine 0.5 L Estimated GFR > 60 BUN/Creatinine Ratio 16 Glucose 127 H Calcium 9.2 Total Bilirubin 2.00 H AST 21 ALT 9 Alkaline Phosphatase 98 Total Protein 6.8 Albumin 3.8 L Albumin/Globulin Ratio 1.3 Influenza A (RT-PCR) Negative Influenza B (RT-PCR) Negative Critical care attestation.: If time is entered above; I have spent that time in minutes in the direct care of this critically ill patient, excluding procedure time. ED Disposition Clinical Impression: COPD with exacerbation Disposition: 01 HOME / SELF CARE / HOMELESS Is pt being admited?: No Condition: Stable Instructions: Chronic Obstructive Pulmonary Disease, Cough, Adult, Chronic Obstructive Pulmonary Disease (ED) Prescriptions: Amoxicillin/K Clav Tab [Augmentin 875 mg] 1 tab PO Q12HR 7 Days #14 tab predniSONE [Deltasone] 20 mg PO QDAY 5 Days #5 tab Albuterol Sulfate [Proventil Hfa] 6.7 gm IH Q4HR PRN 30 Days #1 inh PRN Reason: wheezing Referrals: ALICE HULL MD [Primary Care Provider] - 3-5 Days
[2022-04-09 05:00] VITALS: BP 143/87
== END 2022-04-09 04:58 | disposition home or self-care (01) ==
LOC: ED 17:21
DX: J44.1 Chronic obstructive pulmonary disease with (acute) exacerbation (principal); F17.200 Nicotine dependence, unspecified, uncomplicated; Z88.5 Allergy status to narcotic agent; Z79.899 Other long term (current) drug therapy
CPT/HCPCS: 36415; 71046; 80053; 85025; 94640; 99284; J3490; 87502; Q0162